=== PATIENT | female | born 1940 | race Caucasian/White ===

== ENCOUNTER 2018-03-30 20:36 | Emergency (ER) | payer OTHER, BC ==
[2018-03-30 23:00] LABS: Urine Bacteria >50 /HPF (<20); Urine Culture Reflex Order NOT NEEDED; Urine RBC <5 /HPF (NONE SEEN)
[2018-03-30] MEDS ORDERED: NA CHLORIDE 0.9% 1,000 ML ONE (23:10)
[2018-03-30] MEDS ORDERED: NA CHLORIDE 0.9% 250 ML ONE (23:10)
[2018-03-30] MEDS ORDERED: CEFTRIAXONE/SWI 1gm 1 GM/10 ML SYR ONE (23:11)
[2018-03-30 23:56] LABS: Absolute Lymphocytes (CBC) 1.2 K/uL (0.7-4.9); Absolute Monocytes 0.8 K/uL (0.1-1.3); Absolute Neutrophil 7.2 K/uL (1.8-8.0); Basophils % 0.5 % (0-1.3); Eosinophils % 0.1 % (0-4.4); Hematocrit 39.6 % (36.0-45.0); Lymphocytes % 12.8 % (15.3-44.8); MCV 96.8 fL (80-100); MPV 9.3 fL (7.6-11.3); Monocytes % 8.4 % (3.3-12.3); RBC Red Blood Cell Count 4.09 M/uL (3.86-4.86)
[2018-03-31 00:04] LABS: Potassium 3.7 mmol/L (3.5-5.1)
[2018-03-31 00:42] LABS: Urine Blood 1+ (NEG); Urine Glucose NEGATIVE (NEG); Urine Protein 1+ (NEG); Urine Specific Gravity 1.015 (1.005-1.030); Urine pH 5.5 (5.0-7.0)
--- NOTE | 2018-03-31 01:12 | RAD REPORT ---
EXAM DESCRIPTION: CT - Head Brain Wo Cont - 03/30/2018 11:33 pm CLINICAL HISTORY: general weakness, headache Fever COMPARISON: HEAD BRAIN W O CONTRAST dated 01/16/2013 TECHNIQUE: All CT scans are performed using dose optimization technique as appropriate and may inclu de automated exposure control or mA/KV adjustment according to patient size. FINDINGS: No intracranial hemorrhage, hydrocephalus or extra-axial fluid collection.Mild generalized brain atrophy is present with moderate periventricular and deep white matter chronic microvascular i schemic changes.No areas of brain edema or evidence of midline shift. The paranasal sinuses and mastoids are clear. The calvarium is intact. IMPRESSION: No acute intracranial abnormality.
--- NOTE | 2018-03-31 01:57 | RAD REPORT ---
EXAM DESCRIPTION: RAD - Chest Single View - 03/31/2018 1:52 am CLINICAL HISTORY: general weakness Chest pain. COMPARISON: CHEST PA AND LAT 2 VIEW dated 01/17/2013; CHEST SINGLE VIEW dated 01/16/2013; CHEST PA AND LAT 2 VIEW dated 01/19/2011; CHEST PA AND LAT 2 VIEW dated 05/06/2008 FINDINGS: Portable technique limits examination quality. The lungs are mildly emphysematous but clear. The heart is mildly to moderately enlarged in size. No displaced fractures. IMPRESSION: COPD.
--- NOTE | 2018-03-31 02:36 | EDPHYS ---
Physician Documentation [facility] Name: Ellen Squires Age: 77 yrs Sex: Female : 1940 Arrival Date: 03/30/2018 Time: 20:42 Bed 18 Private MD: ED Physician Luis Uribe HPI: 03/30 23:00 This 77 yrs old Female presents to ER via Ambulatory with complaints of cp Fever, Weakness. 23:00 The patient reports fever, not measured (subjective). cp 23:00 Onset: The symptoms/episode began/occurred yesterday. cp Historical: - Allergies: 21:17 No Known Allergies; aj1 - Home Meds: 21:17 losartan oral oral [Active]; clopidogrel 75 mg oral tab 1 tab once daily [Active]; aj1 donepezil 5 mg oral tab 1 tab once daily [Active]; - PMHx: 21:17 TIA; Hypertension; aj1 - Immunization history:: Flu vaccine is up to date. - Social history:: Smoking status: Patient/guardian denies using tobacco. - Ebola Screening: : Patient denies travel to an Ebola-affected area in the 21 days before illness onset. ROS: 23:05 Constitutional: Positive for body aches, chills, Negative for fever, poor PO intake. cp 23:05 Eyes: Negative for injury, pain, redness, and discharge. cp Exam: 23:10 Constitutional: The patient appears in no acute distress, alert, awake, cp non-diaphoretic, non-toxic, well developed, well nourished. 23:10 Head/Face: Normocephalic, atraumatic. cp 23:10 Eyes: Periorbital structures: appear normal, Pupils: equal, round, and reactive to light and accomodation, Extraocular movements: intact throughout, Conjunctiva: normal, no exudate, no injection, Sclera: no appreciated abnormality, Lids and lashes: appear normal, bilaterally. 23:10 ENT: External ear(s): are unremarkable, Ear canal(s): are normal, clear, TM's: bulging, is not appreciated, bilaterally, dullness, bilaterally, erythema, is not appreciated, bilaterally, Nose: is normal, Mouth: Lips: moist, Oral mucosa: pink and intact, moist, Posterior pharynx: is normal, airway is patent, no erythema, no exudate, Voice: is normal. 23:10 Neck: ROM/movement: is normal, is supple, without pain, no range of motions limitations, no meningismus, no nuchal rigidity. 23:10 Chest/axilla: Inspection: normal, Palpation: is normal, no crepitus, no tenderness. 23:10 Cardiovascular: Rate: normal, Rhythm: regular, Edema: is not appreciated, JVD: is not appreciated. 23:10 Respiratory: the patient does not display signs of respiratory distress, Respirations: normal, no use of accessory muscles, no retractions, no splinting, no tachypnea, labored breathing, is not present, Breath sounds: are clear throughout, no decreased breath sounds, no stridor, no wheezing. 23:10 Abdomen/GI: Inspection: abdomen appears normal, Bowel sounds: active, all quadrants, Palpation: soft, in all quadrants, mild abdominal tenderness, in the left lower quadrant, rebound tenderness, is not appreciated, voluntary guarding, is not appreciated, involuntary guarding, is not appreciated. 23:10 Back: CVA tenderness, is absent. 23:10 Skin: cellulitis, is not appreciated, no rash present. 23:10 Neuro: Orientation: to person, place \T\ time. Mentation: lucid, able to follow commands, Cerebellar function: is grossly normal, Motor: moves all fours, general weakness w/o focal deficits, Sensation: no obvious gross deficits. Vital Signs: 21:17 BP 147 / 54; Pulse 86; Resp 20; Temp 98.7(O); Pulse Ox 97% on R/A; Weight 81.65 kg (R); aj1 Height 5 ft. 3 in. (160.02 cm); Pain 5/10; 22:30 BP 141 / 56; Pulse 76; Resp 18; Temp 98.1(O); lc1 23:30 BP 137 / 61; Pulse 72; Resp 15; Pulse Ox 98% on R/A; lp1 03/31 01:15 BP 149 / 54; Pulse 72; Resp 12; Pulse Ox 98% on R/A; lp1 02:15 BP 144 / 61; Pulse 73; Resp 18; Pulse Ox 99% on R/A; lp1 03/30 21:17 Body Mass Index 31.89 (81.65 kg, 160.02 cm) aj1 MDM: 03/30 22:46 Patient medically screened. 03/31 02:35 Data reviewed: vital signs, nurses notes, lab test result(s), radiologic studies, CT cp scan, plain films. 02:35 Test interpretation: by ED physician or midlevel provider: plain radiologic studies. cp Counseling: I had a detailed discussion with the patient and/or guardian regarding: the historical points, exam findings, and any diagnostic results supporting the discharge/admit diagnosis, lab results, radiology results, to return to the emergency department if symptoms worsen or persist or if there are any questions or concerns that arise at home. Response to treatment: the patient's symptoms have mildly improved after treatment, and as a result, I will discharge patient. 03/30 21:33 Order name: Urine Culture [facility] 03/30 21:33 Order name: Urine Microscopic Only; Complete Time: 23:59 [facility] 03/30 23:59 Interpretation: Normal except: UWBC >50; UBACT >50. 03/30 22:39 Order name: Basic Metabolic Panel; Complete Time: 00:14 [facility] 03/31 00:15 Interpretation: Normal except: NA 135; GFR 40. 03/30 22:39 Order name: Blood Culture Adult (2) [facility] 03/30 22:39 Order name: CBC with Diff; Complete Time: 00:14 [facility] 03/31 00:15 Interpretation: Normal except: RON% 78.2; LYM% 12.8. 03/30 22:39 Order name: Lactate; Complete Time: 01:03 [facility] 03/31 01:03 Interpretation: Within normal limits: LAC 0.8. 03/30 22:39 Order name: Procalcitonin; Complete Time: 02:34 [facility] 03/31 02:34 Interpretation: Reviewed. 03/30 22:43 Order name: Urine Dipstick--Ancillary (enter results); Complete Time: 01:03 fl 03/31 01:03 Interpretation: Normal except: UKET 1+; UBLD 1+; UPROT 1+; U NIT POSITIVE; UESTR 1+. 03/30 22:53 Order name: CT Head Brain wo Cont; Complete Time: 01:28 03/31 01:28 Interpretation: Report reviewed. 03/30 22:53 Order name: Influenza Screen (a \T\ B); Complete Time: 01:03 03/31 01:03 Interpretation: Reviewed. 03/31 01:30 Order name: XRAY Chest (1 view); Complete Time: 02:34 03/30 21:33 Order name: Urine Dipstick-Ancillary (obtain specimen); Complete Time: 22:27 [facility] 03/30 22:39 Order name: Cardiac monitoring; Complete Time: 23:45 [facility] 03/30 22:39 Order name: EKG - Nurse/Tech; Complete Time: 23:45 [facility] 03/30 22:39 Order name: IV Saline Lock - Large Bore; Complete Time: 23:11 [facility] 03/30 22:39 Order name: Labs collected and sent; Complete Time: 23:11 [facility] 03/30 22:39 Order name: O2 Per Protocol; Complete Time: 23:45 [facility] 03/30 22:39 Order name: O2 Sat Monitoring; Complete Time: 23:45 [facility] 03/31 01:38 Order name: PO challenge; Complete Time: 02:22 cp Administered Medications: 03/30 23:00 Drug: Rocephin 1 grams Route: IV; Rate: calculated rate; Site: right antecubital; [facility] 03/31 00:36 Follow up: Response: No adverse reaction; IV Status: Completed infusion [facility] 03/30 23:00 Drug: NS 0.9% 1000 ml Route: IV; Rate: 75 ml/hr; Site: right antecubital; [facility] 03/31 02:53 Follow up: IV Status: IV converted to saline lock [facility] 03/30 23:50 Drug: NS 0.9% 250 ml Route: IV; Rate: bolus; Site: right forearm; [facility] 03/31 00:36 Follow up: IV Status: Completed infusion; IV Intake: 250ml [facility] Disposition: 05:25 Co-signature as Attending Physician, Luis Uribe MD. pkl Disposition: 03/31/18 02:35 Discharged to Home. Impression: Urinary tract infection, site not specified. - Condition is Stable. - Discharge Instructions: Urinary Tract Infection, Adult. - Prescriptions for Bactrim DS 800- 160 mg Oral Tablet - take 1 tablet by ORAL route every 12 hours for 10 days; 20 tablet. - Medication Reconciliation Form, Thank You Letter, Antibiotic Education, Prescription Opioid Use form. - Follow up: Private Physician; When: 2 - 3 days; Reason: Recheck today's complaints. - Problem is new. - Symptoms have improved. Signatures: Dispatcher [employer] Karina Hull RN RN aj1 Luis Uribe MD MD pkl Therrien, Shelly, EMBRYOLOGY PROFESSOR-C EMBRYOLOGY PROFESSOR-Csnw ThapaSobeidaa lc1 Stephani Jacobson RN RN lp1 Chavo Simeon PA PA cp Corrections: (The following items were deleted from the chart) 02:54 02:35 03/31/2018 02:35 Discharged to Home. Impression: Urinary tract infection, site lp1 not specified. Condition is Stable. Forms are Medication Reconciliation Form, Thank You Letter, Antibiotic Education, Prescription Opioid Use. Follow up: Private Physician; When: 2 - 3 days; Reason: Recheck today's complaints. Problem is new. Symptoms have improved. cp
--- NOTE | 2018-03-31 02:36 | ER ---
Nurse's Notes [facility] Name: Ellen Squires Age: 77 yrs Sex: Female : 1940 Arrival Date: 03/30/2018 Time: 20:42 Bed 18 Private MD: Diagnosis: Urinary tract infection, site not specified Presentation: 03/30 21:14 Presenting complaint: Patient states: "Yesterday evening I started getting fever off aj1 and on and I ache all over and I just want to sleep." Patient's son reports she has had a poor appetite. Reports nausea, denies vomiting, diarrhea. Denies cough, congestion. Transition of care: patient was not received from another setting of care. Onset of symptoms was March 30, 2018. Risk Assessment: Do you want to hurt yourself or someone else? Patient reports no desire to harm self or others. Initial Sepsis Screen: Does the patient meet any 2 criteria? No. Patient's initial sepsis screen is negative. Does the patient have a suspected source of infection? No. Patient's initial sepsis screen is negative. Care prior to arrival: None. 21:14 Method Of Arrival: Ambulatory [facility] 21:14 Acuity: LACEY 4 aj1 Triage Assessment: 21:17 General: Appears in no apparent distress. uncomfortable, Behavior is calm, cooperative, aj1 appropriate for age. Pain: Complains of pain in generalized body aches Pain currently is 5 out of 10 on a pain scale. Quality of pain is described as aching. Neuro: Level of Consciousness is awake, alert, obeys commands. Cardiovascular: Patient's skin is warm and dry. Respiratory: Airway is patent Respiratory effort is even, unlabored, Respiratory pattern is regular, symmetrical, Denies cough, shortness of breath. GI: Reports nausea, Patient currently denies abdominal pain, diarrhea, vomiting. Derm: Skin is pink, warm \\T\\ dry. normal. Musculoskeletal: Circulation, motion, and sensation intact. Historical: - Allergies: 21:17 No Known Allergies; aj1 - Home Meds: 21:17 losartan oral oral [Active]; clopidogrel 75 mg oral tab 1 tab once daily [Active]; aj1 donepezil 5 mg oral tab 1 tab once daily [Active]; - PMHx: 21:17 TIA; Hypertension; aj1 - Immunization history:: Flu vaccine is up to date. - Social history:: Smoking status: Patient/guardian denies using tobacco. - Ebola Screening: : Patient denies travel to an Ebola-affected area in the 21 days before illness onset. Screenin:30 Abuse screen: Denies threats or abuse. Nutritional screening: No deficits noted. lc1 Tuberculosis screening: No symptoms or risk factors identified. Fall Risk None identified. Assessment: 03/31 00:05 General: Appears in no apparent distress. Behavior is calm, cooperative. Pain: Denies lc1 pain. Neuro: Reports headache weakness. Cardiovascular: No deficits noted. Respiratory: Breath sounds are clear bilaterally. GI: No signs and/or symptoms were reported involving the gastrointestinal system. : No signs and/or symptoms were reported regarding the genitourinary system. EENT: No signs and/or symptoms were reported regarding the EENT system. Derm: No signs and/or symptoms reported regarding the dermatologic system. Musculoskeletal: No signs and/or symptoms reported regarding the musculoskeletal system. 00:23 General: Appears in no apparent distress. Neuro: Level of Consciousness is awake, lp1 alert, obeys commands, Gait is steady, Pupils are PERRLA, Reports weakness generalized. Respiratory: Respiratory effort is even, unlabored. Derm: Skin is pink, warm \\T\\ dry. 01:34 Reassessment: Patient appears in no apparent distress at this time. Patient and/or lp1 family updated on plan of care and expected duration. Pain level reassessed. Patient is alert, oriented x 3, equal unlabored respirations, skin warm/dry/pink. Patient states feeling better. 01:35 Reassessment: Provider at bedside to discuss results with patient and family. lp1 02:00 Reassessment: Patient tolerating PO fluids. lp1 02:52 Reassessment: Patient is alert, oriented x 3, equal unlabored respirations, skin lp1 warm/dry/pink. Patient denies pain at this time. Patient states feeling better. Patient states symptoms have improved. Vital Signs: 03/30 21:17 BP 147 / 54; Pulse 86; Resp 20; Temp 98.7(O); Pulse Ox 97% on R/A; Weight 81.65 kg (R); aj1 Height 5 ft. 3 in. (160.02 cm); Pain 5/10; 22:30 BP 141 / 56; Pulse 76; Resp 18; Temp 98.1(O); 1 23:30 BP 137 / 61; Pulse 72; Resp 15; Pulse Ox 98% on R/A; lp1 03/31 01:15 BP 149 / 54; Pulse 72; Resp 12; Pulse Ox 98% on R/A; lp1 02:15 BP 144 / 61; Pulse 73; Resp 18; Pulse Ox 99% on R/A; lp1 03/30 21:17 Body Mass Index 31.89 (81.65 kg, 160.02 cm) [facility] ED Course: 03/30 20:42 Patient arrived in ED. al2 21:15 Triage completed. aj1 21:17 Arm band placed on Patient placed in waiting room, Patient notified of wait time. aj1 21:40 Janett Thapa is Primary Nurse. lc1 22:30 Patient has correct armband on for positive identification. Bed in low position. Side lc1 rails up X 1. Door closed. Lights dimmed. 22:46 Chavo Simeon PA is PHCP. cp 22:46 Luis Uribe MD is Attending Physician. cp 23:11 Inserted saline lock: 20 gauge in right forearm, using aseptic technique. Blood bp collected. 23:[address] via wheelchair. kw1 23:31 CT completed. Patient tolerated procedure well. Patient moved back from CT. kw1 23:33 CT Head Brain wo Cont In Process Unspecified. EDMS 03/31 01:51 X-ray completed. Portable x-ray completed in exam room. Patient tolerated procedure kw well. 01:52 XRAY Chest (1 view) In Process Unspecified. EDMS 02:23 No provider procedures requiring assistance completed. lp1 02:53 IV discontinued, No redness/swelling at site. Pressure dressing applied. [facility] Administered Medications: 03/30 23:00 Drug: Rocephin 1 grams Route: IV; Rate: calculated rate; Site: right antecubital; [facility] 03/31 00:36 Follow up: Response: No adverse reaction; IV Status: Completed infusion [facility] 03/30 23:00 Drug: NS 0.9% 1000 ml Route: IV; Rate: 75 ml/hr; Site: right antecubital; [facility] 03/31 02:53 Follow up: IV Status: IV converted to saline lock [facility] 03/30 23:50 Drug: NS 0.9% 250 ml Route: IV; Rate: bolus; Site: right forearm; lp1 03/31 00:36 Follow up: IV Status: Completed infusion; IV Intake: 250ml lp1 Intake: 00:36 IV: 250ml; Total: 250ml. lp1 Outcome: 02:35 Discharge ordered by MD. cp 02:54 Discharged to home ambulatory, with family. lp1 02:54 Condition: good 02:54 Discharge instructions given to patient, Instructed on discharge instructions, follow up and referral plans. medication usage, Demonstrated understanding of instructions, follow-up care, medications, Prescriptions given X 1. 02:54 Patient left the ED. lp1 Addendum: 04/02/2018 07:31 Addendum: Culture Results: Positive urine culture. No further action required. Bacteria i w sensitive to prescribed antibiotic. Signatures: Dispatcher [employer] EDMS Karina Gibbs, RN RN aj1 Jennifer Maguire RN RN Janett Mancilla Kimberlee kw Pena, Laura, RN RN lp1 Chavo Simeon PA PA cp Peltier, Brian, RN RN Rosina Lopez Angelica al2
[2018-03-31 02:59] VITALS: TEMP 98.1
[2018-03-31 03:02] VITALS: BP 144/61; O2SAT 99
--- NOTE | 2018-03-31 07:16 | EKG ---
Test Date: 2018-03-30 Test Time: 23:22:39 Maintenance Helper: FARHAT MEASUREMENT RESULTS: Intervals: Rate: 71 DC: 170 QRSD: 86 QT: 394 QTc: 428 [place]: P: 61 DC: 170 QRS: 49 T: 72 INTERPRETIVE STATEMENTS: Normal sinus rhythm Normal ECG Compared to ECG 01/19/2011 17:15:43 No significant changes Electronically Signed On 03-31-18 07:15:47 CDT by Carl Cano
== END 2018-03-31 02:54 | disposition home or self-care (01) ==
LOC: ER 20:36
DX: N39.0 Urinary tract infection, site not specified (principal); I10 Essential (primary) hypertension; Z86.73 Personal history of transient ischemic attack (TIA), and cerebral infarction without residual deficits
CPT/HCPCS: 36415; 70450; 71045; 80048; 83605; 84145; 85025; 87040 ×2; 87077; 87086; 87088; 87186; 87804 ×2; 93005; 99284; J0696; J7030; 81003; 81015

== ENCOUNTER 2021-03-02 07:33 | Inpatient (IN) | payer BC, OTHER ==
--- NOTE | 2021-03-02 07:57 | RAD REPORT ---
EXAM DESCRIPTION: CT - Ct Stroke Brain Wo Cont - 03/02/2021 7:46 am CLINICAL HISTORY: WEAKNESS, left side COMPARISON: Head Brain Wo Cont dated 03/30/2018 TECHNIQUE: Axial 5 millimeter thick images of the head were obtained without IV contrast. All CT scans are performed using dose optimization technique as appropriate and may include automated exposure control or mA/KV adjustment according to patient size. FINDINGS: No intracranial hemorrhage, mass, or cerebral edema. No acute cortical based infarction id entifiable. There is no cortical edema or sulcal effacement. Patient has mild atrophy change that is similar to 2018. Ventricles are in proportion to the volume loss. Prominent cerebral chronic ischemic changes are present. This extends into each basal ganglia and the subcortical white matter of each i nsular cortex. Arterial calcifications are present. No extra-axial fluid collections. Tapia matter-wh ite matter differentiation is preserved. Visualized portions of the mastoid air cells, paranasal sinuses, and orbits are unremarkable. Findings telephoned to Dr Upton 7:52 a.m. IMPRESSION: No intracranial hemorrhage present and no cortical based infarction identifiable. Patient has prominent atrophy change as detailed. Chronic ischemic changes can mask nonhemorrhagic acute infarction. MR brain followup can be obtained if there is ongoing concern for acute ischemia.
[2021-03-02 07:59] LABS: Absolute Lymphocytes (CBC) 1.7 K/uL (0.7-4.9); Basophils % 1.2 % (0-1.3); Hematocrit 37.1 % (36.0-45.0); RBC Red Blood Cell Count 3.79 M/uL (3.86-4.86)
[2021-03-02 08:02] LABS: Protime INR 0.98
[2021-03-02 08:18] LABS: BUN Blood Urea Nitrogen 18 mg/dL (7-18); Bicarbonate 24 mmol/L (21-32); Glucose Level 102 mg/dL (74-106); Potassium 3.9 mmol/L (3.5-5.1); Sodium Level 141 mmol/L (136-145); Troponin (Emerg Dept Use Only) < 0.02 ng/mL (0.0-0.045)
[2021-03-02] MEDS ORDERED: ASPIRIN 81 MG CHEWABLE TABLET ONE (08:35)
[2021-03-02] MEDS ORDERED: CLOPIDOGREL 75 MG TABLET ONE (08:35)
[2021-03-02] MEDS ORDERED: FOLIC ACID 5 MG/ML VIAL ONE (08:37)
--- NOTE | 2021-03-02 08:54 | RAD REPORT ---
EXAM DESCRIPTION: CT - Head angio - 03/02/2021 8:38 am CLINICAL HISTORY: WEAKNESS TECHNIQUE: During dynamic enhancement using nonionic IV contrast, axial 1 millimeter thick images of the head were obtained. Sagittal and axial reconstruction images were generated using MIP technique and reviewed. All CT scans are performed using dose optimization technique as appropriate and may include automated exposure control or mA/KV adjustment according to patient size. COMPARISON: CT head same date FINDINGS: No aneurysm or vascular malformation identified. Major venous sinuses are patent. No stenosis, named branch occlusion, vasculitis or other significant vascular finding identifiable. L eft posterior communicating artery is present supplying the left posterior cerebral artery. A small r ight posterior communicating artery is present. Calcifications are present in the cavernous portions of each internal carotid artery. This does not result in significant luminal narrowing. IMPRESSION: Negative CT angio head examination for acute or significant finding.
--- NOTE | 2021-03-02 08:58 | RAD REPORT ---
EXAM DESCRIPTION: CT - Neck Angio - 03/02/2021 8:38 am CLINICAL HISTORY: weakness, left side TECHNIQUE: During dynamic enhancement using nonionic IV contrast, axial 2 mm thick images of the nec k were obtained. Sagittal and axial reconstruction images were generated using MIP technique and revi ewed. All CT scans are performed using dose optimization technique as appropriate and may include automated exposure control or mA/KV adjustment according to patient size. COMPARISON: CT head same date, CTA head same date FINDINGS: No aneurysm or vascular malformation identified. No carotid or vertebral dissection. Aortic arch is not fully imaged. No abnormality suspected. Left vertebral artery arises from the left subclavian artery or proximal than usual. This is a normal variant. The right vertebral artery is do minant. No right vertebral origin abnormality seen. No vasculitis or dissection. Patient has signific ant bilateral carotid bulb atherosclerotic calcifications. This causes no more than 20-30% stenosis a nd is probably not at this time clinically significant. No focal abnormality of either vertebral kalyan ry. Basilar artery is normal. IMPRESSION: Bilateral carotid bulb calcifications causing 20-30% stenosis.
--- NOTE | 2021-03-02 09:47 | ER ---
Nurse's Notes [facility] Name: Ellen Squires Age: 80 yrs Sex: Female : 1940 Arrival Date: 03/02/2021 Time: 07:38 Bed 2 Private MD: Diagnosis: Cerebral infarction, unspecified;Weakness Presentation: 03/02 07:38 Chief complaint: Patient states: Got up from bed at 0630 and noticed her left leg was aa5 weak, around 0640 she was sitting at the table and got up from the table and fell due to left-sided weakness and numbness, no head injury, no LOC. Last normal was 0300. Pt currently c/o left sided weakness. Pt takes Plavix. 07:38 Coronavirus screen: At this time, the client does not indicate any symptoms associated aa5 with coronavirus-19. Ebola Screen: Patient negative for fever greater than or equal to 101.5 degrees Fahrenheit, and additional compatible Ebola Virus Disease symptoms. An acute neurological deficit is present. The patients blood glucose was checked before arriving to the hospital and was found to be normal. Initial Sepsis Screen: Does the patient meet any 2 criteria? No. Patient's initial sepsis screen is negative. Does the patient have a suspected source of infection? No. Patient's initial sepsis screen is negative. Risk Assessment: Do you want to hurt yourself or someone else? Patient reports no desire to harm self or others. Onset of symptoms was March 02, 2021. Care prior to arrival: IV initiated. Glucose check: 96. 07:38 Acuity: LACEY 2 aa5 07:38 Method Of Arrival: EMS: [facility] aa5 Stroke Activation: Symtpom onset >3 hours and < 6 hours Physician: Stroke Attending; Name: ; Notified At: ; Arrived At: Physician: Chief Stroke Resident; Name: ; Notified At: ; Arrived At: Physician: Stroke Resident; Name: ; Notified At: ; Arrived At: Physician: ED Attending; Name: ; Notified At: ; Arrived At: Physician: ED Resident; Name: ; Notified At: ; Arrived At: Historical: - Allergies: 07:38 No Known Allergies; aa5 - Home Meds: 07:38 clopidogrel 75 mg Oral tab 1 tab once daily [Active]; donepezil 5 mg Oral tab 1 tab aa5 once daily [Active]; losartan Oral [Active]; - PMHx: 07:38 Hypertension; TIA; RLS; aa5 - Immunization history:: Client reports receiving the 2nd dose of the Covid vaccine. - Family history:: not pertinent. - Social history:: Smoking status: Patient denies any tobacco usage or history of. - Hospitalizations: : No recent hospitalization is reported. Screenin:51 Abuse screen: Denies threats or abuse. Denies injuries from another. Nutritional hb screening: No deficits noted. Tuberculosis screening: No symptoms or risk factors identified. Fall Risk Total Marti Fall Scale indicates Low Risk Score (25-44 pts). Fall prevention measures have been instituted. Side Rails Up X 2 Frequent Obs/Assesments occuring As available Patient and Family Educated on Fall Prevention Program and strategies. Assessment: 07:38 VAN Scoring: Arm Drift: Minor drift Visual Disturbance: No visual disturbance noted. aa5 Aphasia: No aphasia noted. Neglect: No neglect noted. 07:38 General: Appears comfortable, Behavior is calm, cooperative. Pain: Denies pain. 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 Cardiovascular: Heart tones S1 S2 present Rhythm is regular. Respiratory: Airway is patent Respiratory effort is even, unlabored, Respiratory pattern is regular, symmetrical, Breath sounds are clear bilaterally. GI: Abdomen is round non-distended. : No signs and/or symptoms were reported regarding the genitourinary system. EENT: No signs and/or symptoms were reported regarding the EENT system. Derm: Skin is pink, warm \T\ dry. Musculoskeletal: Range of motion: intact in all extremities. 07:43 Reassessment: Pt to CT via stretcher, accompanied by me and Mala Lindsey RN.. aa5 07:51 Reassessment: Pt back from CT scan, labs collected and sent to lab. . aa5 08:10 Patient has been NPO before screening. The patient is alert, and able to follow aa5 commands. The patient does not exhibit slurred or garbled speech. The patient is not exhibiting difficulty speaking. The patient does not exhibit difficulty understanding words. The patient is able to swallow own secretions with no drooling or need for suction. Patient tolerated one teaspoon of water. No drooling, immediate coughing, gurgling, or clearing of the throat was noted. The patient tolerated 90mL of water. No drooling, immediate coughing, gurgling, or clearing of the throat was noted. The patient passed the bedside swallow screening. Oral medications may be given as ordered. Contact Physician for further diet orders. Provider notified of bedside swallow screening results: Cedric Upton MD. 08:10 T-PA (Activase) Screening: Indications: No evidence of intracranial hemorrhage or CT of aa5 head and no evidence of peripheral hemorrhage or recent CVA: Yes. 08:25 Reassessment: Pt taken to CT scan via stretcher, accompanied by CT techs. . aa5 10:30 Reassessment: Patient is alert, oriented x 3, equal unlabored respirations, skin aa5 warm/dry/pink. Awaiting room assignment, pt notified of wait time. . 11:25 Reassessment: Pt given Valium due to anxiety for MRI. . aa5 11:28 Reassessment: Pt to MRI via stretcher with tests superintendent. . aa5 13:00 Reassessment: Patient is alert, oriented x 3, equal unlabored respirations, skin aa5 warm/dry/pink. Vital Signs: 07:38 BP 206 / 91; Pulse 87; Resp 18 S; Temp 97.6(O); Pulse Ox 95% on R/A; aa5 08:00 BP 173 / 68; Pulse 77; Resp 16 S; Pulse Ox 96% on R/A; aa5 NIH Stroke Scale Scores: 07:38 NIHSS Score: 4 aa5 07:42 NIHSS Score: 1 buying intern Course: 07:38 Patient arrived in ED. aa5 07:38 Arm band placed on Patient placed in an exam room, on a stretcher. aa5 07:42 Cedric Upton MD is Attending Physician. rn 07:46 CT Stroke Brain w/o Contrast In Process Unspecified. EDMS 07:50 Maggy Carranza, RN is Primary Nurse. aa5 07:51 Patient has correct armband on for positive identification. Bed in low position. Call light in reach. 07:55 Triage completed. aa5 08:38 CT Head Angio In Process Unspecified. EDMS 08:38 CT Neck Angio In Process Unspecified. EDMS 09:46 Christiano Granado MD is Hospitalizing Provider. rn 09:49 Stroke CXR 1 View In Process Unspecified. EDMS 13:00 No provider procedures requiring assistance completed. Patient admitted, IV remains in aa5 place. Administered Medications: 08:15 Drug: Aspirin Chewable Tablet 324 mg Route: PO; aa5 08:15 Drug: PlaVIX (clopidogrel) 75 mg Route: PO; aa5 08:15 Drug: foLIC Acid 1 mg Route: IVPB; Site: left antecubital; aa5 11:25 Drug: Valium (diazepam) 2 mg Route: PO; aa5 Outcome: 09:47 Decision to Hospitalize by Provider. rn 12:58 Admitted to Med/surg accompanied by tech, via stretcher, with chart, Report called to kash Gonzalez RN 12:58 Condition: stable 12:58 Discharge instructions given to patient, Instructed on the need for admit, Demonstrated understanding of instructions. 13:00 Patient left the ED. bd NIH Stroke Scale - NIH Stroke Score Date: 03/02/2021 Time: 07:38 Total Score = 4 1a. Level of Consciousness (LOC) - 0(Alert) 1b. Level of Consciousness (LOC) (Month \T\ Age) - 0(Both) 1c. LOC Commands (Open \T\ Closes Eyes/Dispatcher Maintenance Service) - 0(Both) 2. Best Gaze (Lateral Gaze Paresis) - 0(Normal) 3. Visual Field Loss - 0(No visual loss) 4. Facial Palsy - 0(Normal) 5a. Left Arm: Motor (10-second hold) - 1(Drift) 5b. Right Arm: Motor (10-second hold) - 0(No drift) 6a. Left Leg: Motor (5-second hold - always test supine) - 2(Drift, some effort against gravity) 6b. Right Leg: Motor (5-second hold - always test supine) - 0(No drift) 7. Limb Ataxia (finger/nose \T\ heel/monteiro - test with eyes open) - 0(Absent) 8. Sensory Loss (pinprick arms/legs/face) - 1(Mild to moderate loss) 9. Best Language: Aphasia (description/naming/reading) - 0(No aphasia) 10. Dysarthria (speech clarity - read or repeat words) - 0(Normal) 11. Extinction and Inattention (visual/tactile/auditory/spatial/personal) - 0(No abnormality) Initials: kash NIH Stroke Scale - NIH Stroke Score Date: 03/02/2021 Time: 07:42 Total Score = 1 1a. Level of Consciousness (LOC) - 0(Alert) 1b. Level of Consciousness (LOC) (Month \T\ Age) - 0(Both) 1c. LOC Commands (Open \T\ Closes Eyes/Dispatcher Maintenance Service) - 0(Both) 2. Best Gaze (Lateral Gaze Paresis) - 0(Normal) 3. Visual Field Loss - 0(No visual loss) 4. Facial Palsy - 0(Normal) 5a. Left Arm: Motor (10-second hold) - 0(No drift) 5b. Right Arm: Motor (10-second hold) - 0(No drift) 6a. Left Leg: Motor (5-second hold - always test supine) - 1(Drift) 6b. Right Leg: Motor (5-second hold - always test supine) - 0(No drift) 7. Limb Ataxia (finger/nose \T\ heel/monteiro - test with eyes open) - 0(Absent) 8. Sensory Loss (pinprick arms/legs/face) - 0(Normal) 9. Best Language: Aphasia (description/naming/reading) - 0(No aphasia) 10. Dysarthria (speech clarity - read or repeat words) - 0(Normal) 11. Extinction and Inattention (visual/tactile/auditory/spatial/personal) - 0(No abnormality) Initials: rn Signatures: Dispatcher [employer] Leyda Fernandes Roman, MD MD rn Calderon, Audri, RN RN aa5 Mala Lindsey RN RN hb
--- NOTE | 2021-03-02 09:47 | EDPHYS ---
Physician Documentation [facility] Name: Ellen Squires Age: 80 yrs Sex: Female : 1940 Arrival Date: 03/02/2021 Time: 07:38 Bed 2 Private MD: ED Physician Cedric Upton HPI: 03/02 07:42 This 80 yrs old Female presents to ER via Unassigned with complaints of S/S rn of Possible Stroke. 07:42 The patient's problem is reported as weakness, in the left upper extremity, in the left rn lower extremity. Onset: The symptoms/episode began/occurred at an unknown time. last known normal around 0300 when went to bathroom, woke up at 0600 already with left leg and arm weakness, symptoms slightly improving.. Duration: This was a single incident. The symptoms are alleviated by nothing. The symptoms are aggravated by walking. Severity of symptoms: At their worst the symptoms were moderate in the emergency department the symptoms have improved. The patient has experienced a previous episode. The patient has not recently seen a physician. 07:59 NOticed when woke up at 0600 already having trouble moving left leg, noticed more when rn trying to ambulate. NO fall or trauma, symptoms improving. + "mini stroke" in past. Takes plavix. . Historical: - Allergies: 07:38 No Known Allergies; aa5 - Home Meds: 07:38 clopidogrel 75 mg Oral tab 1 tab once daily [Active]; donepezil 5 mg Oral tab 1 tab aa5 once daily [Active]; losartan Oral [Active]; - PMHx: 07:38 Hypertension; TIA; RLS; aa5 - Immunization history:: Client reports receiving the 2nd dose of the Covid vaccine. - Family history:: not pertinent. - Social history:: Smoking status: Patient denies any tobacco usage or history of. - Hospitalizations: : No recent hospitalization is reported. ROS: 07:59 Constitutional: Negative for fever, chills, and weight loss, Eyes: Negative for injury, rn pain, redness, and discharge, Neck: Negative for injury, pain, and swelling, Cardiovascular: Negative for chest pain, palpitations, and edema, Respiratory: Negative for shortness of breath, cough, wheezing, and pleuritic chest pain, Abdomen/GI: Negative for abdominal pain, nausea, vomiting, diarrhea, and constipation, Back: Negative for injury and pain, : Negative for injury, bleeding, discharge, and swelling, MS/Extremity: Negative for injury and deformity, Skin: Negative for injury, rash, and discoloration, Neuro: Negative for headache, numbness, tingling, and seizure. Exam: 07:59 Radiologist reports: NO acute findings on CT rn 07:59 Constitutional: This is a well developed, well nourished patient who is awake, alert, and in no acute distress. Head/Face: Normocephalic, atraumatic. Eyes: Pupils equal round and reactive to light, extra-ocular motions intact. Lids and lashes normal. Conjunctiva and sclera are non-icteric and not injected. Cornea within normal limits. Periorbital areas with no swelling, redness, or edema. Cardiovascular: Regular rate and rhythm. No pulse deficits. Respiratory: No increased work of breathing, no retractions or nasal flaring. Abdomen/GI: Soft, non-tender Skin: Warm, dry MS/ Extremity: Pulses equal, no cyanosis. Neuro: Awake and alert, GCS 15, oriented to person, place, time, and situation. Cranial nerves II-XII grossly intact. Motor strength 5/5 RUE/RLE, + mild drift LLE, no drift LUE. Sensory grossly intact. Cerebellar exam normal. Vital Signs: 07:38 BP 206 / 91; Pulse 87; Resp 18 S; Temp 97.6(O); Pulse Ox 95% on R/A; aa5 08:00 BP 173 / 68; Pulse 77; Resp 16 S; Pulse Ox 96% on R/A; aa5 NIH Stroke Scale Scores: 07:38 NIHSS Score: 4 aa5 07:42 NIHSS Score: 1 rn MDM: 07:42 Patient medically screened. rn 07:59 ED course: Last known normal 5 hours ago, ct head no acute findings, will obtain ct rn angio, symptoms improving, NIH 1, takes plavix.NO indication for TPA right now given outside of window.. 09:43 Differential diagnosis: CVA, TIA. Data reviewed: vital signs, nurses notes, lab test rn result(s), EKG, radiologic studies, CT scan, and as a result, I will admit patient. Counseling: I had a detailed discussion with the patient and/or guardian regarding: the historical points, exam findings, and any diagnostic results supporting the discharge/admit diagnosis, lab results, radiology results, the need for further work-up and treatment in the hospital. Response to treatment: the patient's symptoms have markedly improved after treatment, and as a result, I will discharge patient. Admission orders: after a detailed discussion of the patient's condition and case, the admit orders are written by me. ED course: CTA head and neck without LVO, no acute findings, symptoms continue to improve, reports left leg now about 80% improved. Still feels a little weak. Will admit to Dr. Granado for further w/u and neuro consult.. 03/02 07:42 Order name: Basic Metabolic Panel; Complete Time: 08:25 rn 03/02 07:42 Order name: CBC with Diff; Complete Time: 08:25 rn 03/02 07:42 Order name: Protime (+inr); Complete Time: 08:04 03/02 07:42 Order name: Ptt, Activated; Complete Time: 08:04 03/02 07:42 Order name: Troponin (emerg Dept Use Only); Complete Time: 08:25 rn 03/02 08:01 Order name: Glucose, Ancillary Testing; Complete Time: 08:04 EDDE 03/02 07:42 Order name: CT Stroke Brain w/o Contrast; Complete Time: 08:04 rn 03/02 07:42 Order name: Stroke CXR 1 View rn 03/02 08:04 Order name: CT Head Angio 03/02 08:04 Order name: CT Neck Angio 03/02 10:28 Order name: Echo with Doppler EDDE 03/02 10:57 Order name: MRA Head Wo Cont EDDE 03/02 07:42 Order name: EKG; Complete Time: 07:43 rn 03/02 07:42 Order name: Accucheck; Complete Time: 08:12 rn 03/02 07:42 Order name: Cardiac monitoring; Complete Time: 07:58 rn 03/02 07:42 Order name: EKG - Nurse/Tech; Complete Time: 08:12 rn 03/02 07:42 Order name: IV Saline Lock; Complete Time: 07:58 rn 03/02 10:28 Order name: CONS Physician Consult EDDE 03/02 10:28 Order name: Physical Therapy Consult EDDE 03/02 10:28 Order name: NPO EDDE 03/02 10:28 Order name: EKG Electrocardiogram EDDE 03/02 10:28 Order name: Speech Therapy Consult [facility] 03/02 11:00 Order name: MRA Neck W/Wo Cont EDDE 03/02 11:00 Order name: Brain W/Wo Cont [facility] 03/02 07:42 Order name: Labs collected and sent; Complete Time: 07:58 rn 03/02 07:42 Order name: NPO; Complete Time: 07:58 rn 03/02 07:42 Order name: O2 Per Protocol; Complete Time: 07:58 rn 03/02 07:42 Order name: O2 Sat Monitoring; Complete Time: 07:58 rn 03/02 07:42 Order name: Stroke Swallow Screen; Complete Time: 09:56 rn Administered Medications: 08:15 Drug: Aspirin Chewable Tablet 324 mg Route: PO; aa5 08:15 Drug: PlaVIX (clopidogrel) 75 mg Route: PO; aa5 08:15 Drug: foLIC Acid 1 mg Route: IVPB; Site: left antecubital; aa5 11:25 Drug: Valium (diazepam) 2 mg Route: PO; aa5 Disposition Summary: 03/02/21 09:47 Hospitalization Ordered Hospitalization Status: Inpatient Admission rn Provider: Christiano Granado rn [facility] rn Condition: Stable rn Problem: new rn Symptoms: have improved rn Bed/Room Type: Standard rn Room Assignment: 216(03/02/21 10:53) bd Diagnosis - Cerebral infarction, unspecified rn - Weakness rn Forms: - Medication Reconciliation Form rn - SBAR form rn NIH Stroke Scale - NIH Stroke Score Date: 03/02/2021 Time: 07:38 Total Score = 4 1a. Level of Consciousness (LOC) - 0(Alert) 1b. Level of Consciousness (LOC) (Month \\T\\ Age) - 0(Both) 1c. LOC Commands (Open \\T\\ Closes Eyes/Informatics Analyst) - 0(Both) 2. Best Gaze (Lateral Gaze Paresis) - 0(Normal) 3. Visual Field Loss - 0(No visual loss) 4. Facial Palsy - 0(Normal) 5a. Left Arm: Motor (10-second hold) - 1(Drift) 5b. Right Arm: Motor (10-second hold) - 0(No drift) 6a. Left Leg: Motor (5-second hold - always test supine) - 2(Drift, some effort against gravity) 6b. Right Leg: Motor (5-second hold - always test supine) - 0(No drift) 7. Limb Ataxia (finger/nose \\T\\ heel/monteiro - test with eyes open) - 0(Absent) 8. Sensory Loss (pinprick arms/legs/face) - 1(Mild to moderate loss) 9. Best Language: Aphasia (description/naming/reading) - 0(No aphasia) 10. Dysarthria (speech clarity - read or repeat words) - 0(Normal) 11. Extinction and Inattention (visual/tactile/auditory/spatial/personal) - 0(No abnormality) Initials: aa5 NIH Stroke Scale - NIH Stroke Score Date: 03/02/2021 Time: 07:42 Total Score = 1 1a. Level of Consciousness (LOC) - 0(Alert) 1b. Level of Consciousness (LOC) (Month \\T\\ Age) - 0(Both) 1c. LOC Commands (Open \\T\\ Closes Eyes/Informatics Analyst) - 0(Both) 2. Best Gaze (Lateral Gaze Paresis) - 0(Normal) 3. Visual Field Loss - 0(No visual loss) 4. Facial Palsy - 0(Normal) 5a. Left Arm: Motor (10-second hold) - 0(No drift) 5b. Right Arm: Motor (10-second hold) - 0(No drift) 6a. Left Leg: Motor (5-second hold - always test supine) - 1(Drift) 6b. Right Leg: Motor (5-second hold - always test supine) - 0(No drift) 7. Limb Ataxia (finger/nose \\T\\ heel/monteiro - test with eyes open) - 0(Absent) 8. Sensory Loss (pinprick arms/legs/face) - 0(Normal) 9. Best Language: Aphasia (description/naming/reading) - 0(No aphasia) 10. Dysarthria (speech clarity - read or repeat words) - 0(Normal) 11. Extinction and Inattention (visual/tactile/auditory/spatial/personal) - 0(No abnormality) Initials: rn Signatures: Dispatcher [employer] EDMS Dirrim, Leyda bd Upton, Cedric, MD MD rn Carranza, Maggy, RN RN aa5 Corrections: (The following items were deleted from the chart) 10:33 10:28 Chest Pa And Lat (2 Views) ordered. EDMS EDMS 10:50 09:47 rn bd 10:53 10:50 222 bd bd 10:57 10:28 Stroke Protocol ordered. EDMS EDMS
[2021-03-02] MEDS ORDERED: ONDANSETRON 4 MG/2 ML VIAL IV PRN (10:23)
[2021-03-02] MEDS ORDERED: ACETAMINOPHEN 500 MG TAB PO PRN (10:23)
--- NOTE | 2021-03-02 10:45 | RAD REPORT ---
EXAM DESCRIPTION: RAD - Chest Single View - 03/02/2021 9:50 am CLINICAL HISTORY: weakness, shortness of breath COMPARISON: March 2018 TECHNIQUE: AP portable chest image was obtained 03/02/2021 9:50 am . FINDINGS: Diffuse fibrotic lung pattern is present. Interstitial pattern is increased over compariso n. This could be progressive fibrosis, interstitial edema or less likely a diffuse interstitial infil trate. No focal mass or consolidation. Heart size is normal and similar to comparison. No abnormal vascular engorgement. No measurable pleu ral effusion and no pneumothorax. No acute bony abnormality seen. No acute aortic findings suspected. IMPRESSION: Diffuse interstitial opacification increased over a baseline March 2018 appearance. Interval change could be progressive fibrosis, interstitial edema or possibly interstitial infiltrate .
[2021-03-02] MEDS ORDERED: NA CHLORIDE 0.9% 1,000 ML IV SCH (11:00)
[2021-03-02] MEDS ORDERED: DIAZEPAM 2 MG TABLET ONE (11:40)
--- NOTE | 2021-03-02 12:51 | RAD REPORT ---
EXAM DESCRIPTION: MRI - Brain W/Wo Cont - 03/02/2021 12:39 pm CLINICAL HISTORY: Acute CVA COMPARISON: head CT March 02, 2021 TECHNIQUE: Axial, sagittal, and coronal magnetic images of the brain were obtained. 18 cc MultiHance administered intravenously FINDINGS: 5 millimeter area of abnormal signal deep white matter right frontal lobe. 3 millimeter ar ea of abnormal signal deep white matter right parietal lobe. Both are compatible with acute infarctio n. Moderate signal within periventricular, deep subcortical white matter probably ischemic changes secon abhinav to small vessel disease. Increased signal right basal ganglia could either represent old lacunar infarction or prominent Virch ow-Josh space. Old right brainstem infarction The ventricles are normal in caliber. No abnormal enhancement within the brain is seen. An extra-axial fluid collection is not noted. Fluid within the sinuses/mastoids is not seen IMPRESSION: Small acute white matter infarction right cerebrum
--- NOTE | 2021-03-02 13:03 | RAD REPORT ---
EXAM DESCRIPTION: MRI - MRA Neck W/Wo Cont - 03/02/2021 12:39 pm CLINICAL HISTORY: Acute CVA TECHNIQUE: Magnetic resonance angiogram of the neck was performed. 18 cc MultiHance was administered intravenously. 3D MIPS reconstruction performed FINDINGS: Calcified plaque involves carotid bulbs bilaterally. Left carotid bulb is narrowed approxi mately 40%. There is artifact from the calcification limiting evaluation of the right carotid bulb an d proximal right internal carotid artery. Comparison it to a CT angiogram neck of the same date pamela ramirez an approximately 40% stenosis. Mild plaque is present within the remainder of the common carotid, internal carotid and external webb tid arteries. The vertebral arteries is dominant. Evaluation of the proximal left vertebral artery not performed as it is not included in the field of view. No significant stenosis seen. IMPRESSION: Approximately 40% stenosis involving the carotid bulbs bilaterally NASCET criteria used. Mild 0-49% stenosis Moderate 50-69% stenosis Severe 70-99% stenosis
--- NOTE | 2021-03-02 13:09 | RAD REPORT ---
EXAM DESCRIPTION: MRI - MRA Head Wo Cont - 03/02/2021 12:39 pm CLINICAL HISTORY: CVA TECHNIQUE: Magnetic resonance angiogram was performed. 3D MIPS reconstruction performed FINDINGS: Suboptimal evaluation of portions of the left middle cerebral artery secondary to artifact . origin left posterior cerebral artery. Areas of narrowing involving posterior cerebral artery bilaterally probably chronic. Bilateral anterior cerebral, right middle cerebral, basilar and distal internal carotid arteries unre markable No acute stenosis or occlusion suspected. No aneurysm noted IMPRESSION: No acute abnormality displayed
[2021-03-02 13:11] VITALS: BMI 28.7
[2021-03-02] MEDS ORDERED: HYDRALAZINE HCL 20 MG/ML VIAL IV ONE (17:44)
[2021-03-02] MEDS ORDERED: LOSARTAN POTASSIUM 50 MG TABLET PO ONE (18:00)
[2021-03-02] MEDS: ATORVASTATIN 80 MG TAB PO SCH (19:57)
[2021-03-02] MEDS: METOPROLOL TARTRATE 5 MG/5 ML INJ IV PRN (19:58)
[2021-03-03 00:46] VITALS: O2SAT 95
[2021-03-03] MEDS: METOPROLOL TARTRATE 5 MG/5 ML INJ IV PRN ×2 (05:01→10:56)
[2021-03-03 05:47] LABS: Absolute Lymphocytes (CBC) 1.7 K/uL (0.7-4.9); Basophils % 0.8 % (0-1.3); Lymphocytes % 21.8 % (15.3-44.8); MPV 9.4 fL (7.6-11.3); RBC Red Blood Cell Count 3.96 M/uL (3.86-4.86)
[2021-03-03 05:59] LABS: Albumin 3.2 g/dL (3.4-5.0); Bilirubin Total 0.5 mg/dL (0.2-1.0); Magnesium 2.1 mg/dL (1.8-2.4); Phosphorus 2.9 mg/dL (2.5-4.9); Potassium 3.8 mmol/L (3.5-5.1); Protein, Total 7.2 g/dL (6.4-8.2)
--- NOTE | 2021-03-03 08:20 | ECHO ---
HEIGHT: 5 ft 3 in WEIGHT: 162 lb 0 oz DATE OF STUDY: 03/02/[address]: Christiano Granado MD 2-DIMENSIONAL: YES M.MODE: YES DOPPLER: YES COLOR FLOW: YES TDS: NO PORTABLE: NO DEFINITY: NO BUBBLE STUDY: NO DIAGNOSIS: STROKE CARDIAC HISTORY: CATHERIZATION: SURGERY: PROSTHETIC VALVE: PACEMAKER: MEASUREMENTS (cm) DIASTOLIC (NORMALS) SYSTOLIC (NORMALS) IVSd 1.0 (0.6-1.2) LA Diam 3.3 (1.9-4.0) LVEF 76% LVIDd 3.5 (3.5-5.7) LVIDs 2.0 (2.0-3.5) %FS 44% LVPWd 1.1 (0.6-1.2) Ao Diam 2.6 (2.0-3.7) 2 DIMENSIONAL ASSESSMENT: RIGHT ATRIUM: NORMAL LEFT ATRIUM: NORMAL RIGHT VENTRICLE: NORMAL LEFT VENTRICLE: NORMAL TRICUSPID VALVE: NORMAL MITRAL VALVE: NORMAL PULMONIC VALVE: NORMAL AORTIC VALVE: NORMAL PERICARDIAL EFFUSION: NONE AORTIC ROOT: NORMAL LEFT VENTRICULAR WALL MOTION: NORMAL. DOPPLER/COLOR FLOW: NORMAL. COMMENTS: NORMAL 2D ECHO WITH DOPPLER. NO WALL MOTION ABNORMALITY. NO EFFUSION. TECHNOLOGIST: ROSE FUNK
[2021-03-03] MEDS: ASPIRIN EC 81 MG TAB PO SCH (08:52)
[2021-03-03] MEDS: ENOXAPARIN 40 MG/0.4 ML SQ SCH (08:52)
[2021-03-03] MEDS: LOSARTAN POTASSIUM 50 MG TABLET PO SCH (08:52)
[2021-03-03] MEDS: DONEPEZIL HCL 5 MG TAB PO SCH (08:52)
[2021-03-03] MEDS: CLOPIDOGREL 75 MG TABLET PO SCH (08:52)
[2021-03-03] MEDS ORDERED: POTASSIUM CL SA 10 MEQ TAB PO ONE (09:00)
[2021-03-03] MEDS ORDERED: CLOPIDOGREL 75 MG TABLET PO SCH (09:00)
--- NOTE | 2021-03-03 14:59 | RAD REPORT ---
EXAM DESCRIPTION: US - Extremity Venous Uni Ltd - 03/03/2021 2:33 pm CLINICAL HISTORY: rule out dvtright leg pain and swelling COMPARISON: None. TECHNIQUE: Real-time sonographic evaluation of the right lower extremity deep venous systems was per formed. FINDINGS: Normal compressibility, flow augmentation, phasic flow and spontaneous flow are identified in the right lower extremity common femoral, superficial femoral, popliteal and posterior tibial vei ns. No intraluminal filling defects seen. IMPRESSION: No DVT in the right lower extremity.
--- NOTE | 2021-03-03 16:16 | P.HP ---
Certification for Inpatient Patient admitted to: Inpatient With expected LOS: >2 Midnights Patient will require the following post-hospital care: None Practitioner: I am a practitioner with admitting privileges, knowledge of patient current condition, hospital course, and medical plan of care. Services: Services provided to patient in accordance with Admission requirements found in Title 42 Section 412.3 of the Code of Federal Regulations Patient History Date of Service: 03/02/21 Reason for admission: CVA History of Present Illness: Patient is a 80-year-old female came to the hospital with an acute CVA. Patient was having weakness of her left lower extremity. She literally sure when her symptoms started. She woke up at 3 o'clock in the morning and she did not notice it. When she woke back up at 7:00 a.m. it was there. Her left leg was heavy and she felt like the left side of her body was weak. She came into the emergency room around 7:[address] of the head was negative. By this time it was really uncertain as to when her initial symptoms have started so decision was made not to do tPA and she was most likely out of the window. She will had MRI of her brain which was positive for acute CVA of the right frontal lobe as well as small infarct in the right parietal lobe. This most likely explains her symptoms. She did have bilateral carotid artery stenosis of 40%. Patient will need further evaluation foreign acute CVA. Allergies prednisone Allergy (Mild, Verified 01/17/13 00:54) Nausea/Vomiting No Known Allergies Allergy (Uncoded 03/31/18 02:58) Unknown Home Medications: Clopidogrel Bisulfate [Plavix*] 75 mg PO DAILY 03/02/21 Donepezil HCl 5 mg PO DAILY 03/02/21 Losartan Potassium 50 mg PO DAILY 03/02/21 - Past Medical/Surgical History Has patient received pneumonia vaccine in the past: Yes Diabetic: No -: Hypertension -: Restless Leg Syndrome -: Mini stroke -: Cholecystectomy -: Bilateral Tubal Ligation - Family History Mother Medical History: Cancer Notes: - lung cancer Father Notes: - aneurysm - Social History Smoking Status: Current some day smoker Alcohol use: No CD- Drugs: No Caffeine use: Yes Place of Residence: Home Review of Systems 10-point ROS is otherwise unremarkable Physical Examination - Vital Signs Temperature: 98 F Blood Pressure: 160/80 Pulse: 72 Respirations: 18 Pulse Ox (%): 98 - Physical Exam General: Alert, In no apparent distress, Oriented x3 HEENT: Atraumatic, PERRLA, Mucous membr. moist/pink, EOMI, Sclerae nonicteric Neck: Supple, 2+ carotid pulse no bruit, No LAD, Without JVD or thyroid abnormality Respiratory: Clear to auscultation bilaterally, Normal air movement Cardiovascular: Regular rate/rhythm, Normal S1 S2, No murmurs Gastrointestinal: Normal bowel sounds, Soft and benign, Non-distended, No tenderness Musculoskeletal: No clubbing, No swelling, No tenderness Integumentary: No rashes Neurological: Normal gait, Normal speech, Normal strength at 5/5 x4 extr, Normal tone, Sensation intact, Cranial nerves 3-12 intact, Normal affect Lymphatics: No axilla or inguinal lymphadenopathy Assessment & Plan - Problems (Diagnosis) (1) Acute CVA (cerebrovascular accident) Current Visit: Yes Status: Acute (2) HTN (hypertension) Current Visit: Yes Status: Acute - Plan Plan: 1. Anti-platelet therapy 2. Statin therapy 3. Lipid profile 4. PT and speech therapy eval 5. Outpatient physical therapy 6. DVT prophylaxis 7. Neurology consultation 8. GI and DVT prophylaxis Discharge Plan: Home Plan to discharge in: Greater than 2 days - Advance Directives Does patient have a Living Will: No Does patient have a Durable POA for Healthcare: No - Code Status/Comfort Care Code Status Assessed: Yes Code Status: Full Code Critical Care: No Time Spent Managing PTS Care (In Minutes): 45
--- NOTE | 2021-03-03 16:27 | P.PN ---
Subjective Date of Service: 03/03/21 Strength is improving. Overall patient much better. Review of Systems 10-point ROS is otherwise unremarkable Physical Examination - Vital Signs Temperature: 98 F Blood Pressure: 160/80 Pulse: 72 Respirations: 18 Pulse Ox (%): 98 - Physical Exam General: Alert, In no apparent distress HEENT: Atraumatic, PERRLA, EOMI Neck: Supple, JVD not distended Respiratory: Clear to auscultation bilaterally, Normal air movement Cardiovascular: Regular rate/rhythm, Normal S1 S2 Gastrointestinal: Normal bowel sounds, No tenderness Musculoskeletal: No tenderness Integumentary: No rashes Neurological: Normal speech, Normal tone, Normal affect Lymphatics: No axilla or inguinal lymphadenopathy - Studies Medications List Reviewed: Yes Assessment & Plan - Problems (Diagnosis) (1) Acute CVA (cerebrovascular accident) Current Visit: Yes Status: Acute (2) HTN (hypertension) Current Visit: Yes Status: Acute - Plan Plan: Continue with plan of care as mentioned below 1. Anti-platelet therapy; dual coverage 2. Statin therapy 3. Lipid profile evaluated 4. PT and speech therapy eval appreciated 5. Outpatient physical therapy 6. DVT prophylaxis 7. Neurology consultation appreciated 8. GI prophylaxis Discharge Plan: Home Plan to discharge in: Greater than 2 days - Advance Directives Does patient have a Living Will: No Does patient have a Durable POA for Healthcare: No - Code Status/Comfort Care Code Status: Full Code Critical Care: No Time Spent Managing PTS Care (In Minutes): 35
--- NOTE | 2021-03-03 16:37 | EKG ---
Test Date: 2021-03-02 Test Time: 08:47:13 [employer] Federal: [employer] MEASUREMENT RESULTS: Intervals: Rate: 79 NC: 164 QRSD: 80 QT: 358 QTc: 410 [place]: P: 68 NC: 164 QRS: 57 T: 80 INTERPRETIVE STATEMENTS: Normal sinus rhythm Normal ECG Compared to ECG 03/30/2018 23:22:39 No significant changes Electronically Signed On 03-03-21 16:33:21 CDT by Abdifatah Estes
[2021-03-03] MEDS: ATORVASTATIN 80 MG TAB PO SCH (21:10)
--- NOTE | 2021-03-03 21:12 | CON ---
Reason For Consultation: Consultation called because of stroke. History Of Present Illness: Ms. Squires is an 80-year-old patient with dementia, hypertension, and r estless legs syndrome along with prior small strokes, who comes to [facility] with worsening left lower extremity weakness, which she was not sure of the exact time of onset. She woke up at 3 in the morning on 03/02 and noticed weakness. Actually she did not immediately notice weakness but w ent back to bed and at around 7 a.m. noticed that the left leg was heavy and difficulty in getting ar ound. She came to the emergency room around 7:33. Since it was not clear if that was the exact onse t and it is possible that the onset had been prior to 3 a.m., she did not receive tPA despite a negat clifton head CT scan. Her brain MRI subsequently did identify an acute right frontal stroke with a small er stroke in the right parietal region. The location of stroke did explain patient's symptoms. She had mild bilateral carotid artery stenosis of around 40%. In addition, her electrocardiogram showed normal sinus rhythm. Her brain magnetic resonance angiogram showed no acute abnormalities. A dopple r of the right lower extremity did not reveal a deep vein thrombosis and her echocardiogram was mac l with 76% ejection fraction. The patient admits that she was taking clopidogrel 75 mg daily. Regim en was adjusted to add aspirin 81 mg daily along with Lipitor 80 mg at bedtime. She received Lovenox 40 mg for DVT prophylaxis. Past Medical History: As noted. Past Surgical History: Cholecystectomy, bilateral tubal ligation. Allergies: PREDNISONE. Medications: At home, Plavix 75 mg daily, donepezil 5 mg daily, losartan 50 mg daily. Family History: Father had an aneurysm and mother with lung cancer and both parents are , Social History: Patient smokes at least 3 cigarettes daily. Denies alcohol use. Review of Systems: Aside from mentioned above, the 10-point review of systems is negative. Physical Examination: Vital Signs: Blood pressure 140 up to 160/75 to 80, pulse 71, temperature 98, oxygen saturation 98%. Respiratory rate 16, weight 160 pounds, height 5 feet 3 inches. General: Ms. Squires is resting in bed, in no acute distress. HEENT: She is normocephalic, atraumatic. Sclerae anicteric. Oropharynx is moist and pink. Neck: Supple. Chest: Clear. Heart: Regular. Extremities: Show no edema, cyanosis, or clubbing. Neurological: She is alert and oriented to person, place, situation. Cranial nerves 2 through 12 sh ow no focal deficits. Motor examination, left upper extremity and right side of 5/5 proximally. Dis tally in the left lower extremity, she has subtle weakness in the leg around 4+/5 proximally and dist ally and on the right side 5/5. Sensory exam intact to light touch, pinprick, temperature, upper and lower extremities bilaterally. Coordination is intact in upper and lower extremities. Reflexes are symmetric in upper and lower extremities. She ambulated over 270 feet with standby assistance to mo dified independence. Laboratory Studies: Complete blood count with differential is normal. Coagulation panel is normal. Chemistries essentially unremarkable. Liver function studies are normal. LDL cholesterol 117, HDL cholesterol 48, total cholesterol 200. Assessment: Ms. Squires is an 80-year-old patient with a stroke with actually good recovery. She arias s hypertension, dyslipidemia, cigarette smoking as risk factors. She is from [place] and plans to re turn to [place] next week. Plan: 1.Aspirin and Plavix as indicated. 2.Statin for dyslipidemia. 3.Folic acid 1 mg daily. 4.Permissive hypertension for the next week, then aggressive management of hypertension. 5.Follow up with primary care physician and neurologist in [place] with possible adjustment of her d onepezil to a full dose of 10 mg twice daily for her subjective cognitive impairment. She may be dis charged. VERONIQUE/NICK Voice ID: [id number] Report ID: [id number]
[2021-03-04 06:10] LABS: Protime INR 1.04
[2021-03-04] MEDS: CLOPIDOGREL 75 MG TABLET PO SCH (08:08)
[2021-03-04] MEDS: LOSARTAN POTASSIUM 50 MG TABLET PO SCH (08:08)
[2021-03-04] MEDS: DONEPEZIL HCL 5 MG TAB PO SCH (08:08)
[2021-03-04] MEDS: ASPIRIN EC 81 MG TAB PO SCH (08:08)
[2021-03-04] MEDS: ENOXAPARIN 40 MG/0.4 ML SQ SCH (08:08)
[2021-03-04 10:56] VITALS: BP 160/80; TEMP 98
--- NOTE | 2021-03-04 10:59 | P.DS ---
Discharge Date: 03/04/21 Disposition: ROUTINE DISCHARGE Discharge Condition: GOOD Reason for Admission: CVA Consultations: Neurology - Problems (1) Acute CVA (cerebrovascular accident) Current Visit: Yes Status: Acute (2) HTN (hypertension) Current Visit: Yes Status: Acute Brief History of Present Illness: Patient is a 80-year-old female came to the hospital with an acute CVA. Patient was having weakness of her left lower extremity. She literally sure when her symptoms started. She woke up at 3 o'clock in the morning and she did not notice it. When she woke back up at 7:00 a.m. it was there. Her left leg was heavy and she felt like the left side of her body was weak. She came into the emergency room around 7:[address] of the head was negative. By this time it was really uncertain as to when her initial symptoms have started so decision was made not to do tPA and she was most likely out of the window. She will had MRI of her brain which was positive for acute CVA of the right frontal lobe as well as small infarct in the right parietal lobe. This most likely explains her symptoms. She did have bilateral carotid artery stenosis of 40%. Patient will need further evaluation foreign acute CVA. Hospital Course: Patient done well during hospitalization. Clinically doing much better. At this time, patient is stable for discharge home. Vital Signs/Physical Exam: Temp Pulse Resp BP Pulse Ox 98 F 72 18 160/80 H 98 03/04/21 10:56 03/04/21 10:56 03/04/21 10:56 03/04/21 10:56 03/04/21 10:56 General: Alert, In no apparent distress, Oriented x3 Laboratory Data at Discharge: WBC 7.60 K/uL (4.3-10.9) 03/03/21 05:21 Hgb 13.2 g/dL (12.0-15.0) 03/03/21 05:21 Hct 39.0 % (36.0-45.0) 03/03/21 05:21 Plt Count 209 K/uL (152-406) 03/03/21 05:21 PT 12.0 SECONDS (9.5-12.5) 03/04/21 05:19 INR 1.04 03/04/21 05:19 APTT 28.8 SECONDS (24.3-36.9) 03/04/21 05:19 Sodium 140 mmol/L (136-145) 03/04/21 05:19 Potassium 4.0 mmol/L (3.5-5.1) 03/04/21 05:19 BUN 18 mg/dL (7-18) 03/04/21 05:19 Creatinine 0.93 mg/dL (0.55-1.3) 03/04/21 05:19 Glucose 96 mg/dL (74-106) 03/04/21 05:19 Phosphorus 2.9 mg/dL (2.5-4.9) 03/03/21 05:21 Magnesium 2.1 mg/dL (1.8-2.4) 03/03/21 05:21 Total Bilirubin 0.5 mg/dL (0.2-1.0) 03/03/21 05:21 AST 15 U/L (15-37) 03/03/21 05:21 ALT 22 U/L (12-78) 03/03/21 05:21 Alkaline Phosphatase 62 U/L (45-117) 03/03/21 05:21 Triglycerides 177 mg/dL (<150) H 03/03/21 05:21 Cholesterol 200 mg/dL (<200) 03/03/21 05:21 HDL Cholesterol 48 mg/dL (40-60) 03/03/21 05:21 Cholesterol/HDL Ratio 4.17 03/03/21 05:21 Home Medications: Clopidogrel Bisulfate [Plavix*] 75 mg PO DAILY 03/02/21 Donepezil HCl 5 mg PO DAILY 03/02/21 Amlodipine [Norvasc*] 10 mg PO DAILY #30 tab 03/04/21 Aspirin [Ecotrin 81 MG] 81 mg PO DAILY #30 tablet. 03/04/21 Atorvastatin Calcium [Lipitor] 80 mg PO BEDTIME #30 tab 03/04/21 Losartan Potassium [Cozaar*] 50 mg PO BID #60 tablet 03/04/21 Metoprolol Tartrate [Lopressor] 50 mg PO BID #60 tab 03/04/21 New Medications: Losartan Potassium [Cozaar*] 50 mg PO BID #60 tablet Aspirin [Ecotrin 81 MG] 81 mg PO DAILY #30 tablet. Atorvastatin Calcium [Lipitor] 80 mg PO BEDTIME #30 tab Metoprolol Tartrate [Lopressor] 50 mg PO BID #60 tab Amlodipine [Norvasc*] 10 mg PO DAILY #30 tab Physician Discharge Instructions: OK TO DC IV AND DC HOME FOLLOW-UP WITH PRIMARY CARE PROVIDER IN 1-2 WEEKS FOLLOW-UP WITH NEUROLOGY IN 1-2 WEEKS RETURN TO THE ER IF symptoms worsen CALL or TEXT DR. GALAVIZ AT [phone] IF ANY QUESTIONS REGARDING HOSPITAL STAY. PLEASE CALL THE FLOOR AT [phone] IF ANY MEDICATION OR NURSING QUESTIONS. Diet: AHA Activity: Fall precautions Followup: Chriss Coronado MD [ASSOCIATE-ACTIVE - CAN ADMIT] - CHARLEEN VILLASEÑOR [Primary Care Provider] - Time spent managing pt's care (in minutes): 35
== END 2021-03-04 11:45 | disposition home or self-care (01) | DRG 65 ==
LOC: ER 07:33 → ERHOLD 11:20 → 2ND 12:46
PROVIDERS: ADMIT Hospitalist; ATTEND Hospitalist
DX: I63.9 Cerebral infarction, unspecified (principal); G81.94 Hemiplegia, unspecified affecting left nondominant side; R29.701 NIHSS score 1; I10 Essential (primary) hypertension; G25.81 Restless legs syndrome; F17.210 Nicotine dependence, cigarettes, uncomplicated; E78.5 Hyperlipidemia, unspecified
CPT/HCPCS: 36415; 70450; 70496; 70498; 70544; 70549; 70553; 71045; 80048; 80053; 80061; 82947; 83735; 84100; 84484; 85025; 85610; 85730; 93005; 93306; 93971; 96374; 97116; 97161; 97530; 99285; A9577; J0360; J1650; J7030; Q9967